=== PATIENT | female | born 1980 | race Caucasian/White ===

== ENCOUNTER 2017-06-11 19:16 | Emergency (ER) | payer OTHER ==
--- NOTE | 2017-06-11 19:39 | EDPHY ---
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 She states that she was riding her horse and was bucked off into the grass. She fell in a sitting position. She has a previous sacral and suprapubic fracture 15 years ago that was treated non operatively. She also has a history of hip dysplasia that was treated 2012 surgically. The she also has a small bruise to her right middle finger at the DIP. She denies other injuries. No head neck or back pain. No bowel or bladder abnormalities. No numbness. No weakness or loss of strength. She is able to ambulate. REVIEW OF SYSTEMS: Constitutional: denies: chills, fever, recent illness, recent injury EENTM: denies: blurred vision, double vision, nose congestion Respiratory: denies: cough, shortness of breath Cardiac: denies: chest pain, irregular heart rate, lightheadedness, palpitations Gastrointestinal/Abdominal: denies: abdominal pain, diarrhea, nausea, vomiting, blood streaked stools Genitourinary: denies: dysuria, frequency, hematuria, pain Musculoskeletal: See HPI Skin: denies: lesions, rash, jaundice, bruising Neurological: denies: headache, numbness, paresthesia, tingling, dizziness, weakness Hematologic/Lymphatic: denies: blood clots, easy bleeding, easy bruising Immunologic/allergic: denies: HIV/AIDS, transplant EXAM: GENERAL: Well-appearing, well-nourished and in no acute distress. HEAD: Atraumatic, normocephalic. EYES: Pupils equal round and reactive to light, extraocular movements intact, sclera anicteric, conjunctiva are normal. ENT: TMs normal, nares patent, oropharynx clear without exudates. Moist mucous membranes. NECK: Normal range of motion, supple without lymphadenopathy or JVD. LUNGS: Breath sounds clear to auscultation bilaterally and equal. No wheezes rales or rhonchi. HEART: Regular rate and rhythm without murmurs, rubs or gallops. ABDOMEN: Soft, nontender, normoactive bowel sounds. No guarding, no rebound. No masses appreciated. BACK: No CVA tenderness, no spinal tenderness, step-offs or deformities EXTREMITIES: Small contusion and swelling to right middle finger DIP. Significant tenderness to coccyx and sacrum. No swelling. No lumbar tenderness. Normal range of motion, no pitting or edema. No clubbing or cyanosis. NEUROLOGICAL: Cranial nerves II through XII grossly intact. Normal speech, normal gait. 5/5 strength, normal movement in all extremities, normal sensation PSYCH: Normal mood, normal affect. SKIN: Warm, dry, normal turgor, no visible rashes or lesions. Source: Patient Exam Limitations: No limitations - Personal History LMP (Females 10-55): 8-14 Days Ago Current Tetanus Diphtheria and Acellular Pertussis (TDAP): Yes - Medical/Surgical History Hx Asthma: No Hx Chronic Respiratory Disease: No Hx Diabetes: No Hx Cardiac Disease: No Hx Renal Disease: No Hx Cirrhosis: No Hx Alcoholism: No Hx HIV/AIDS: No Hx Splenectomy or Spleen Trauma: No Other PMH: pelvic reconstuction, nerve pain to SI, GRAVES DX (RESOLVED) - Family History Significant Family History: No pertinent family hx - Social History Smoking Status: Never smoked Alcohol Use: Sober Drug Use: None Constitutional: Initial Vital Signs Temperature (C) 36.8 C 06/11/17 19:20 Heart Rate 120 H 06/11/17 19:20 Respiratory Rate 18 06/11/17 19:20 Blood Pressure 176/113 H 06/11/17 19:20 O2 Sat (%) 97 06/11/17 19:20 O2 Delivery Mode Room Air Allergies/Adverse Reactions: amoxicillin [Amoxicillin] Allergy (Verified 11/07/13 13:39) Unknown Penicillins Allergy (Verified 11/07/13 13:39) Unknown Home Medications: Medication Instructions Recorded Amitriptyline HCl [Elavil 10 mg 10 mg PO HS 11/06/13 (*)] Norgestimate-Ethinyl Estradiol 1 each PO DAILY 11/06/13 [Ortho Tri-Cyclen 28 Tablet] Herbals/Supplements -Info Only 1 ea PO DAILY 11/07/13 Omeprazole [Prilosec] 40 mg PO DAILY 11/07/13 oxyCODONE IR [Oxycodone Ir (*)] 5 mg PO DAILY PRN 11/07/13 Diazepam [Valium 5 MG (RX)] 5 mg PO TID PRN #20 tab 11/09/13 Methocarbamol [Robaxin 500 mg (*)] 1,000 mg PO QID PRN #50 tab 11/09/13 methylPREDNISolone [Medrol Dose 1 each PO AD #1 ea 11/09/13 Jose Angel] oxyCODONE IR [Oxycodone Ir (*)] 10 mg PO Q3 PRN #50 tab 11/09/13 Medical Decision Making - Diagnostics Imaging: Discussed imaging studies w/ nonfarm animal caretaker Radiologist ED Course/Re-evaluation: 8:30 p.m. We discussed the x-ray results which are reassuring. The patient is happy. We discussed soft questions and donuts as well as ice and rest. She is happy with this plan. She has had hip dysplasia surgery 2011 and has plans to have further modifications this summer. 9:00 p.m. While being discharged the patient asked if she could have pain medication. She takes OxyContin at home and wonders if there is something stronger. We discussed that there is not something stronger but we can give her take-home pack of Percocet if she would like. Differential Diagnosis: Partial list of the Differential diagnosis considered include but were not limited to; fracture, contusion and although unlikely based on the history and physical exam, I also considered head injury, back injury, dislocation. I discussed these differential diagnoses and the plan with the patient as well as the usual and expected course. The patient understands that the diagnosis is provisional and that in medicine we are not always correct and that further workup is often warranted. Usual and customary warnings were given. All of the patient's questions were answered. The patient was instructed to return to the emergency department should the symptoms at all worsen or return, otherwise to followup with the physician as we discussed. - Data Points Medications Given: Discontinued Medications Oxycodone HCl (Oxycodone Ir) 5 mg PO EDNOW ONE Stop: 06/11/17 19:49 Last Admin: 06/11/17 19:49 Dose: 5 mg Oxycodone HCl (Oxycodone Ir) 5 mg PO EDNOW ONE Stop: 06/11/17 19:51 Last Admin: 06/11/17 20:00 Dose: 5 mg Oxycodone/Acetaminophen (Percocet 5/325mg Prepack#4) 1 btl TAKEHOME EDNOW ONE Stop: 06/11/17 21:06 Last Admin: 06/11/17 21:10 Dose: 1 btl Departure - Departure Disposition: Home, Routine, Self-Care Clinical Impression: Coccyx contusion Qualifiers: Encounter type: initial encounter Qualified Code(s): S30.0XXA - Contusion of lower back and pelvis, initial encounter Condition: Fair Instructions: Coccyx Injury (ED) Referrals: Theresa Catalan MD [Primary Care Provider] - As per Instructions
[2017-06-11] MEDS ORDERED: oxyCODONE IR 5 MG TAB ONE (19:48)
[2017-06-11] MEDS ORDERED: oxyCODONE IR 5 MG TAB PO ONE ×2 (19:48→19:50)
[2017-06-11] MEDS ORDERED: OXYCODONE/APAP 5/325MG PREPACK#4 BTL TAKEHOME ONE (21:05)
[2017-06-11 21:25] VITALS: BP 127/98
== END 2017-06-11 21:25 | disposition home or self-care (01) ==
DX: S30.0XXA Contusion of lower back and pelvis, initial encounter (principal); V80.010A Animal-rider injured by fall from or being thrown from horse in noncollision accident, initial encounter; Y99.8 Other external cause status; Y93.52 Activity, horseback riding

== ENCOUNTER 2017-07-13 05:50 | Observation (INO) | payer OTHER ==
--- NOTE | 2017-07-12 15:54 | PDGENHP ---
History and Physical - Chief Complaint Bilateral Hip Pain - History of Present Illness 1. Bilateral~Hip Pain 2. Relative femoral~retro-torsion, acetabular retro-version 3. ~~Bilateral Sacroiliac Joint pain 4. ~~History of bilateral Hip arthroscopy and Bilateral STEFF 2011 HISTORY OF PRESENT ILLNESS: Pedrois a 37 y.o.~~active female~who I have had the pleasure to consult on today. I have enjoyed meeting her. She~lives in [place]. 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 ~She~is single; she~ has no~children. ~Pedroenjoys ride horses, and trail running. Left Hip scope April 2011: Dr. Fran Franklin Left STEFF May 2011: Dr. Garcia Right Hip scope September 2011: Dr. Fran Franklin Right STEFF October 2011: Dr. Radha Mendosa's bilateral~hip pain~started 2009, with some~recalled trauma or injury (pubic ramus?~fracture 2004 after falling off a horse), and with no~previous complaints. Presentation today is of anterior LEFT, posterior SIJ bilateral~hip pain. ~The hip does not~wake her~at night and does not~click and catch on her. Sitting can be uncomfortable~for her. Pedrodoes~report suffering from lower back pain episodes. ~L5-S1 herniated disc (diagnosed 2013). ~Radicular symptoms bilateral down to knees. (started 02/08) Pedrohas~participated in physical therapy and has~tried other conservative measures~including bilateral cortisone hip injections~(no immediate or mcc relief), SI joint injections which gave her 80% relief for 2 weeks, massage , dry needling . She~has not~received sufficient symptomatic improvement. Pedrohas~utilized medication for pain management, including Oxycodone, Meloxicam. Pedrohas used medication since 2011. Pedrounderstands that she~has a hip and pelvis problem which should be researched and wishes to get a better understanding of her~hip status, followed by an establishment of a treatment strategy, hoping she~would be able to get back to her~well being active life. History: Past medical history: ~ Graves Disease Relevant familial history: None which is relevant Past surgical history: No. Surgery Anesthesia 1 Bilateral Hip scopes general 2 Bilateral STEFF General Pedrodenies problematic issues with general anesthesia in the past. I have reviewed, verified and agree with the past medical, surgical, family and social history. Current Medications:~has a current medication list which includes the following prescription(s): amitriptyline, l-norgest/e.estradiol-e.estrad, meloxicam, omeprazole, and oxycodone. ALLERGIES:~is allergic to amoxicillin and penicillins. Objective: Physical Examination: Pedrois 5~feet 7~inches tall and weighs 160~Lbs. Pedrois AAO x3; she~is well-nourished, in NAD. Skin is warm and dry. ~Breathing is non-labored. ~CV with RRR by pulse. Abdomen is soft, NTND. Currently, she~walks with a normal~gait. Trendelenburg sign is negative~and proprioception is reduced, both~sides. She~presents with mild~signs of joint laxity. Beightons Score: 2 Lower spine examination is positive~for sciatic~or femoral nerve irritation with negative~SLR &~femoral stretch tests. Range of motion of the spine is normal~for flexion, extension, and rotations, with no~associated pain. Strength, Sensation and pulses are normal - bilaterally Ankles and knees exams are normal~and no~mal-alignment is evident. She~has no leg length discrepancy. Thigh circumference is symmetric~with no evidence for muscle atrophy~on both~ sides. Hip ROM (degrees): FL ER At 90~hip FL IR At 90~hip FL AB AD EX IR Neutral hip ER Neutral hip R 95 40 0 30 5 5 15 45 L 95 50 0 35 5 5 10 50 Specific hip and pelvis tests: Impingement Test ZHANE Roll Add. Longus R +++ Negative Negative Negative L +++ +++ + Negative Glut. Med ITB Posterior Imp R Negative 5/5 strength Negative 5/5 strength Negative L Negative 5/5 strength Negative 5/5 strength Negative Squeeze test measured normal Bony Symphysis pubis is painful~to touch while concentric activity of the rectus abdominis, does not~produce pain at its insertion. Ilio Psos specific tests are negative for pain during cycling for both hips~no snap. HF is weak with some pain ~both hips. Left anterior~capsule tenderness~ Greater trochanteric burse is pain free~on both hips. Piriformis tests: FAIR is negative, with no~local signs of neuritis related to sciatic nerve. SIJs examination is painful~with normal~ZHANE in relation and local tenderness. Hamstrings tests are negative~functional contraction and negative~tendinopathy both hips. On a daily basis, the following percentages reflect Navya's overall total pain: Deep hip: 20% SIJ: 80% Imaging: Radiology studies which I have personally reviewed, analyzed and measured are below: XR: AP of the hip and pelvis: Performed in a good~technique Coccyx to pubic symphysis distance 1.6~cm. 3~degrees caudal [place] Lines are preserved. Minimal~Pathological signs are seen in the Symphysis Pubis. Minimal~Pathological signs are seen at the Ischial tuberosity. ~ Specific measurements show: NSA~ LCE Sourcil~Angle Sharp's angle Lat. Cam Lat. Pincer C.Over~sign Head~Coverage % ATDmm R N 45 -6 - - + - N N L N 28 8 - - - - N N Pos. wall sign ISS NAD ~~Dysplasia Comments R Negative + 15.2~mm Negative L + + 8.6~mm Negative Sclerosis Sup. Lat. OA Cysts Joint Space-WBZ Joint Space-Medial R Negative Negative Negative 3.1~mm 4.6~mm L Negative Negative Negative 3.7~mm 4.1~mm X Table lateral: Anterior cam lesion is seen~on both hips. Alpha Angle: ~ Right 52~dergrees Left 58~degrees AIIS JOAN seen on 3D/CT Femoral torsion is zero on the right and 3 degrees on the left. Acetabulum is retroverted. Impression and plan: Pedrois a 37 y.o.~active female~suffering from symptomatic Bilateral~hip and SIJ pain due to Bilateral~Hip Pain exacerbated by relative femoral retrotorsion and post STEFF pincer anatomy, causing significant disability to her~ and altering her~sport and life activities. Physical examination, imaging, and her~story correspond with the diagnosis mentioned above. I explained that femoral malrotation is a condition wherein the hip joint has excessive play~and instability due to the orientation of the femur bone or where the femur bone is rotated towards the back of the hip socket resulting in additional impingement pathology. This pathology ranges in severity with treatment options being specific to the nature of the problem. Left untreated, the ante-torsion related instability or the retro-torsion related impingement in the hip joint can cause progressive tearing of the labrum and deterioration of the surface cartilage, ultimately resulting in progressive osteoarthritis of the hip. ~ I explained that femoroacetabular impingement (JOAN - Cam type) arises due to a bony or soft tissue conflict between the femur (ball) and acetabulum (socket) caused by an abnormality in the shape of the femoral head and neck. Over time, repetitive impingement can result in damage to the labrum and adjacent surface cartilage within the socket, ultimately giving rise to progressive osteoarthritis of the hip. ~ I explained that although a labral tear can be a source of pain, it is rarely the root of the problem and typically occurs secondary to an underlying abnormality in the shape and mechanics of the hip joint. ~ I reviewed conservative treatment options for Femoral malrotation and JOAN including activity modification to avoid positions of impingement or instability , physical therapy, non-steroidal anti-inflammatory medications, and various injections (corticosteroid and PRP) aimed at reducing inflammation in the hip joint or/and preventing dynamic instability and impingement. PRP injections may promote healing and reduce symptoms in certain cases but it will not repair chronically damaged tissue. Although these measures may help to buy time~and reduce current level of symptoms, they are not a definitive solution to the problem given the underlying abnormality in the shape of the hip joint. ~ Patients who have failed conservative management and continue to experience symptoms are candidates for definitive surgical treatment, which may consist of hip arthroscopy alone or in combination with more invasive bony realignment procedures of the femur called derotational femoral osteotomy (DFO), where the femur bone is rotated to the normal anatomical range. ~ Hip arthroscopy typically includes treating the labrum with either repair or reconstruction of the torn labrum; as well as addressing the underlying abnormalities by restoring the normal shape to the hip joint. If the cartilage is damaged a Microfracture surgical procedure may also be necessary to help stimulate the growth of fibrocartilage. If a patient requires a labral reconstruction or a microfracture, the initial rehabilitation from the surgery may take longer, but the mcc results are typically favorable. Navya~will review the info presented. In order to obtain more detailed information regarding the alignment, orientation, and shape of the bony hip and pelvis I will order a CT scan to be performed. The results of the CT scan, including femoral torsion and acetabular version measured values and 3D images, will aid me in deciding on the best treatment strategy and surgical pre-planning. Pedrois going to contact us after completing her~imaging studies. Pedrois happy with this plan. I have also supplied her~with handouts, outlining the expected surgical treatment and rehab involved. I wish~Pedroall the best, ~~ ALCON Marie History Information - Allergies/Home Medication List Allergies/Adverse Reactions: amoxicillin [Amoxicillin] Allergy (Verified 11/07/13 13:39) Unknown Penicillins Allergy (Verified 06/23/17 11:10) Unknown Home Medications: Amitriptyline HCl [Elavil 10 mg (*)] 11/06/13 [Last Taken 11/06/13] Norgestimate-Ethinyl Estradiol [Ortho Tri-Cyclen 28 Tablet] 11/06/13 [Last Taken Unknown] Herbals/Supplements -Info Only 11/07/13 [Last Taken Unknown] Omeprazole [Prilosec] 11/07/13 [Last Taken 11/07/13] oxyCODONE IR [Oxycodone Ir (*)] 11/07/13 [Last Taken Unknown] Diazepam [Valium 5 MG (RX)] 06/23/17 [Last Taken Unknown] Methocarbamol [Robaxin 500 mg (*)] 06/23/17 [Last Taken Unknown] oxyCODONE IR [Oxycodone Ir (*)] 06/23/17 [Last Taken Unknown] I have personally reviewed and updated: medical history - Social History Smoking Status: Never smoked Review of Systems Review of Systems: Physical Exam Physical Exam:
[2017-07-13] MEDS ORDERED: LR 1,000 ML IV ONE (06:12)
[2017-07-13] MEDS ORDERED: ACETAMINOPHEN 500 MG TAB PO ONE (06:12)
[2017-07-13] MEDS ORDERED: CLINDAMYCIN 900 MG/DEXTROSE 50 ML IV ONE (06:12)
[2017-07-13] MEDS ORDERED: LIDOCAINE 1% 2 ML INJ ID PRN (06:12)
[2017-07-13] MEDS ORDERED: PREGABALIN 150 MG CAP PO ONE (06:12)
[2017-07-13] MEDS ORDERED: MIDAZOLAM 2 MG/2 ML VIAL IVP ONE (07:02)
--- NOTE | 2017-07-13 07:05 | PDANEPAE ---
ANE History of Present Illness Patient presents for bilateral iliac spine avulsion reduction ANE Past Medical History - Cardiovascular History Hx Hypertension: No Hx Arrhythmias: No Hx Chest Pain: No Hx Coronary Artery / Peripheral Vascular Disease: No Hx CHF / Valvular Disease: No Hx Palpitations: No - Pulmonary History Hx COPD: No Hx Asthma/Reactive Airway Disease: No Hx Recent Upper Respiratory Infection: No Hx Oxygen in Use at Home: No Hx Sleep Apnea: No Sleep Apnea Screening Result - Last Documented: Negative - Neurologic History Hx Cerebrovascular Accident: No Hx Seizures: No Hx Dementia: No - Endocrine History Hx Diabetes: No - Renal History Hx Renal Disorders: No - Liver History Hx Hepatic Disorders: No - Neurological & Psychiatric Hx Hx Neurological and Psychiatric Disorders: No - Cancer History Hx Cancer: No - Congenital Disorder History Hx Congenital Disorders: No - GI History GERD: mild Hx Gastrointestinal Disorders: Yes Gastrointestinal History Comment: reflux, hx ulcers - Other Health History Other Health History: none - Chronic Pain History Chronic Pain: Yes - Surgical History Prior Surgeries: none ANE Review of Systems Review of Systems: - Exercise capacity Exercise capacity: >=4 METS METS (RN): 6 METS ANE Patient History - Allergies Allergies/Adverse Reactions: amoxicillin [Amoxicillin] Allergy (Verified 11/07/13 13:39) Unknown Penicillins Allergy (Verified 06/23/17 11:10) Unknown - Home Medications Home medications: home medication list seen and reviewed Home Medications: Amitriptyline HCl [Elavil 10 mg (*)] 11/06/13 [Last Taken 1 Day Ago ~07/12/17] Norgestimate-Ethinyl Estradiol [Ortho Tri-Cyclen 28 Tablet] 11/06/13 [Last Taken Unknown] Herbals/Supplements -Info Only 11/07/13 [Last Taken Unknown] Omeprazole [Prilosec] 11/07/13 [Last Taken 07/13/17 05:15] oxyCODONE IR [Oxycodone Ir (*)] 11/07/13 [Last Taken 1 Day Ago ~07/12/17] Diazepam [Valium 5 MG (RX)] 06/23/17 [Last Taken Unknown] Methocarbamol [Robaxin 500 mg (*)] 06/23/17 [Last Taken Unknown] oxyCODONE IR [Oxycodone Ir (*)] 06/23/17 [Last Taken Unknown] - NPO status NPO Status: no food or drink >8 hours NPO Since - Liquids (Date): 07/12/17 NPO Since - Liquids (Time): 18:00 NPO Since - Solids (Date): 07/12/17 NPO Since - Solids (Time): 18:00 - Smoking Hx Smoking Status: Never smoked - Family Anes Hx Family Hx Anesthesia Complications: none ANE Labs/Vital Signs - Vital Signs Blood Pressure: 135/89 Heart Rate: 95 Respiratory Rate: 18 O2 Sat (%): 98 Height: 170.18 cm Weight: 72.575 kg ANE Physical Exam - Airway Neck exam: FROM Mallampati Score: Class 2 Mouth exam: small mouth opening - Pulmonary Pulmonary: no respiratory distress - Cardiovascular Cardiovascular: regular rate and rhythym - ASA Status ASA Status: II ANE Anesthesia Plan Anesthesia Plan: general endotracheal anesthesia (rba discussed)
[2017-07-13] MEDS ORDERED: BUPIVACAINE 0.25% 30 ML SDV ONE (07:06)
[2017-07-13] MEDS ORDERED: EPINEPHrine 1 MG/ML INJ ONE (07:06)
[2017-07-13] MEDS ORDERED: PROPOFOL 200 MG/20 ML VIAL ONE (07:08)
[2017-07-13] MEDS ORDERED: PROPOFOL/EMULSION 500 MG/50 ML BOTTLE IV ONE (07:08)
[2017-07-13] MEDS ORDERED: fentaNYL 100 MCG/2 ML INJ ONE ×5 (07:08→12:55)
[2017-07-13] MEDS ORDERED: MIDAZOLAM 2 MG/2 ML VIAL ONE (07:23)
[2017-07-13] MEDS ORDERED: DEXAMETHASONE 4 MG/ML VIAL ONE (07:43)
[2017-07-13] MEDS ORDERED: NEOSTIGMINE METHYLSULFATE 10 MG/10 ML MDV ONE (08:19)
[2017-07-13] MEDS ORDERED: ONDANSETRON 4 MG/2 ML VIAL ONE (08:20)
[2017-07-13] MEDS ORDERED: GLYCOPYRROLATE 0.2 MG/1 ML VIAL ONE ×3 (08:20)
[2017-07-13] MEDS ORDERED: KETOROLAC 30 MG/1 ML SDV ONE (08:20)
[2017-07-13] MEDS ORDERED: METOCLOPRAMIDE 10 MG/2 ML VIAL ONE (08:45)
[2017-07-13] MEDS ORDERED: ROCURONIUM 50 MG/5 ML VIAL ONE (09:02)
[2017-07-13] MEDS ORDERED: HYDROCODONE/APAP 5/325 TAB PO PRN ×2 (11:31→12:34)
[2017-07-13] MEDS ORDERED: ONDANSETRON 4 MG/2 ML VIAL IVP PRN ×3 (11:31→12:34)
[2017-07-13] MEDS ORDERED: LR 500 ML IV PRN ×2 (11:31→12:34)
[2017-07-13] MEDS ORDERED: NALOXONE HCL 0.4 MG/ML INJ IVP PRN ×2 (11:31→12:34)
[2017-07-13] MEDS ORDERED: oxyCODONE IR 5 MG TAB PO PRN ×3 (11:31→12:34)
[2017-07-13] MEDS ORDERED: HYDROmorphONE/DILAUDID 1 MG/ML INJ IVP PRN ×2 (11:51→18:39)
[2017-07-13] MEDS ORDERED: TEMAZEPAM 15 MG CAP PO PRN (11:51)
[2017-07-13] MEDS ORDERED: ONDANSETRON DISINTEGRATING 4 MG TAB PO PRN (11:51)
[2017-07-13] MEDS ORDERED: PROMETHAZINE HCL 25 MG/ML INJ IVP PRN (11:51)
[2017-07-13] MEDS ORDERED: HYDROmorphONE/DILAUDID 2 MG/ML INJ ONE (12:15)
[2017-07-13] MEDS: HYDROmorphONE/DILAUDID 2 MG/ML INJ IVP PRN ×4 (12:16→12:53)
--- NOTE | 2017-07-13 12:26 | POSTANESTH ---
Post Anesthetic Evaluation Cardiovascular Status: Similar to Pre-Op Cond Respiratory Status: Similar to Pre-op Cond. Level of Consciousness/Mental Status: Alert and Oriented Pain Control: Adequate, Prn Tx Ordered Nausea/Vomiting Control: Adequate, Prn Tx Ordered Complications Possibly Related to Anesthesia: None Noted
[2017-07-13] MEDS ORDERED: oxyCODONE IR 5 MG TAB ONE (12:38)
[2017-07-13] MEDS: fentaNYL 100 MCG/2 ML INJ IVP PRN ×3 (12:59→13:34)
[2017-07-13] MEDS: oxyCODONE IR 5 MG TAB PO PRN (18:58)
[2017-07-13] MEDS: ACETAMINOPHEN 325 MG TAB PO PRN (22:51)
[2017-07-13] MEDS: oxyCODONE IR 5 MG TAB PO SCH (22:52)
[2017-07-13] MEDS ORDERED: DIAZEPAM 5 MG TAB PO PRN (23:41)
[2017-07-13] MEDS ORDERED: AMITRIPTYLINE HCL 100 MG TAB PO SCH (23:45)
[2017-07-13] MEDS ORDERED: AMITRIPTYLINE HCL 10 MG TAB PO SCH (23:45)
[2017-07-14] MEDS: oxyCODONE IR 5 MG TAB PO SCH ×4 (02:16→14:08)
[2017-07-14] MEDS: oxyCODONE IR 5 MG TAB PO PRN ×3 (08:55→15:59)
[2017-07-14] MEDS: ACETAMINOPHEN 325 MG TAB PO PRN (10:39)
--- NOTE | 2017-07-14 10:40 | ASMTCMCOM ---
CM Note CM Note Notes: Pt medically stable for d/c, no CM d/c needs identified. Date Signed: 07/14/2017 10:39 AM Electronically Signed By:DEVIKA Rios
[2017-07-14 11:26] VITALS: BP 125/79
[2017-07-14] MEDS ORDERED: AMITRIPTYLINE HCL 10 MG TAB PO SCH (21:00)
--- NOTE | 2017-08-15 19:20 | GDS ---
[f rep st] DISCHARGE SUMMARY Navya underwent a bilateral AIIS reduction and hardware removal and was kept overnight for postope rative pain management. She was well pain managed with oral and IV push medications and she was disc harged the following day in good condition. She will go home with crutches and will be full weightbe aring and follow up with Dr. Torres in 2 weeks time. /[id number]/MODL
== END 2017-07-14 17:34 | disposition home or self-care (01) ==
LOC: FSGY 05:50 → F3N 11:51
PROVIDERS: ADMIT Orthopaedic Surgery Sports Medicine; ATTEND Orthopaedic Surgery Sports Medicine
PROC: 0QB30ZZ Excision of Left Pelvic Bone, Open Approach (ICD-10-PCS; principal; 2017-07-13 07:15)
PROC: 0QB20ZZ Excision of Right Pelvic Bone, Open Approach (ICD-10-PCS; principal; 2017-07-13 07:15)
PROC: 0QP304Z Removal of Internal Fixation Device from Left Pelvic Bone, Open Approach (ICD-10-PCS; principal; 2017-07-13 07:15)
PROC: 0QP204Z Removal of Internal Fixation Device from Right Pelvic Bone, Open Approach (ICD-10-PCS; principal; 2017-07-13 07:15)
PROC: BQ111ZZ Fluoroscopy of Left Hip using Low Osmolar Contrast (ICD-10-PCS; 2017-07-13 07:15)
PROC: BQ101ZZ Fluoroscopy of Right Hip using Low Osmolar Contrast (ICD-10-PCS; 2017-07-13 07:15)
DX: T84.84XA Pain due to internal orthopedic prosthetic devices, implants and grafts, initial encounter (principal); M25.851 Other specified joint disorders, right hip; M25.852 Other specified joint disorders, left hip; M25.551 Pain in right hip; M25.552 Pain in left hip; M53.3 Sacrococcygeal disorders, not elsewhere classified; E05.00 Thyrotoxicosis with diffuse goiter without thyrotoxic crisis or storm; Y79.2 Prosthetic and other implants, materials and accessory orthopedic devices associated with adverse incidents; Z88.0 Allergy status to penicillin
CPT/HCPCS: 20680; 27071; 76001; G0378; C1713; J0171; J1100; J1170; J1885; J2250; J2405; J2704; J2765; J3010

== ENCOUNTER → 2017-07-21 | Outpatient (CLI) | payer OTHER | LOC: FIMAGING 13:42 | PROVIDERS: ATTEND Orthopaedic Surgery Sports Medicine | DX: Q65.89 Other specified congenital deformities of hip (principal); M25.451 Effusion, right hip; M65.9 Synovitis and tenosynovitis, unspecified; M76.899 Other specified enthesopathies of unspecified lower limb, excluding foot; M24.152 Other articular cartilage disorders, left hip; M25.551 Pain in right hip; M25.552 Pain in left hip; Z98.890 Other specified postprocedural states ==

== ENCOUNTER 2017-08-14 09:36 | Observation (INO) | payer OTHER ==
--- NOTE | 2017-08-13 23:04 | PDGENHP ---
History and Physical - Chief Complaint Right Hip Pain - History of Present Illness 1. Bilateral~Hip Pain 2. Relative femoral~retro-torsion, acetabular retro-version 3. ~~Bilateral Sacroiliac Joint pain 4. ~~History of bilateral Hip arthroscopy and Bilateral STEFF 2011 HISTORY OF PRESENT ILLNESS: Pedrois a 37 y.o.~~active female~who I have had the pleasure to consult on today. I have enjoyed meeting her. She~lives in [place]. 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 ~She~is single; she~ has no~children. ~Pedroenjoys ride horses, and trail running. Left Hip scope April 2011: Dr. Fran Franklin Left STEFF May 2011: Dr. Garcia Right Hip scope September 2011: Dr. Fran Franklin Right STEFF October 2011: Dr. Radha Mendosa's bilateral~hip pain~started 2009, with some~recalled trauma or injury (pubic ramus?~fracture 2004 after falling off a horse), and with no~previous complaints. Presentation today is of anterior LEFT, posterior SIJ bilateral~hip pain. ~The hip does not~wake her~at night and does not~click and catch on her. Sitting can be uncomfortable~for her. Pedrodoes~report suffering from lower back pain episodes. ~L5-S1 herniated disc (diagnosed 2013). ~Radicular symptoms bilateral down to knees. (started 02/08) Pedrohas~participated in physical therapy and has~tried other conservative measures~including bilateral cortisone hip injections~(no immediate or prison relief), SI joint injections which gave her 80% relief for 2 weeks, massage , dry needling . She~has not~received sufficient symptomatic improvement. Pedrohas~utilized medication for pain management, including Oxycodone, Meloxicam. Pedrohas used medication since 2011. Pedrounderstands that she~has a hip and pelvis problem which should be researched and wishes to get a better understanding of her~hip status, followed by an establishment of a treatment strategy, hoping she~would be able to get back to her~well being active life. History: Past medical history: ~ Graves Disease Relevant familial history: None which is relevant Past surgical history: No. Surgery Anesthesia 1 Bilateral Hip scopes general 2 Bilateral STEFF General Pedrodenies problematic issues with general anesthesia in the past. I have reviewed, verified and agree with the past medical, surgical, family and social history. Current Medications:~has a current medication list which includes the following prescription(s): amitriptyline, l-norgest/e.estradiol-e.estrad, meloxicam, omeprazole, and oxycodone. ALLERGIES:~is allergic to amoxicillin and penicillins. Objective: Physical Examination: Pedrois 5~feet 7~inches tall and weighs 160~Lbs. Pedrois AAO x3; she~is well-nourished, in NAD. Skin is warm and dry. ~Breathing is non-labored. ~CV with RRR by pulse. Abdomen is soft, NTND. Currently, she~walks with a normal~gait. Trendelenburg sign is negative~and proprioception is reduced, both~sides. She~presents with mild~signs of joint laxity. Beightons Score: 2 Lower spine examination is positive~for sciatic~or femoral nerve irritation with negative~SLR &~femoral stretch tests. Range of motion of the spine is normal~for flexion, extension, and rotations, with no~associated pain. Strength, Sensation and pulses are normal - bilaterally Ankles and knees exams are normal~and no~mal-alignment is evident. She~has no leg length discrepancy. Thigh circumference is symmetric~with no evidence for muscle atrophy~on both~ sides. Hip ROM (degrees): FL ER At 90~hip FL IR At 90~hip FL AB AD EX IR Neutral hip ER Neutral hip R 95 40 0 30 5 5 15 45 L 95 50 0 35 5 5 10 50 Specific hip and pelvis tests: Impingement Test ZHANE Roll Add. Longus R +++ Negative Negative Negative L +++ +++ + Negative Glut. Med ITB Posterior Imp R Negative 5/5 strength Negative 5/5 strength Negative L Negative 5/5 strength Negative 5/5 strength Negative Squeeze test measured normal Bony Symphysis pubis is painful~to touch while concentric activity of the rectus abdominis, does not~produce pain at its insertion. Ilio Psos specific tests are negative for pain during cycling for both hips~no snap. HF is weak with some pain ~both hips. Left anterior~capsule tenderness~ Greater trochanteric burse is pain free~on both hips. Piriformis tests: FAIR is negative, with no~local signs of neuritis related to sciatic nerve. SIJs examination is painful~with normal~ZHANE in relation and local tenderness. Hamstrings tests are negative~functional contraction and negative~tendinopathy both hips. On a daily basis, the following percentages reflect Navya's overall total pain: Deep hip: 20% SIJ: 80% Imaging: Radiology studies which I have personally reviewed, analyzed and measured are below: XR: AP of the hip and pelvis: Performed in a good~technique Coccyx to pubic symphysis distance 1.6~cm. 3~degrees caudal [place] Lines are preserved. Minimal~Pathological signs are seen in the Symphysis Pubis. Minimal~Pathological signs are seen at the Ischial tuberosity. ~ Specific measurements show: NSA~ LCE Sourcil~Angle Sharp's angle Lat. Cam Lat. Pincer C.Over~sign Head~Coverage % ATDmm R N 45 -6 - - + - N N L N 28 8 - - - - N N Pos. wall sign ISS NAD ~~Dysplasia Comments R Negative + 15.2~mm Negative L + + 8.6~mm Negative Sclerosis Sup. Lat. OA Cysts Joint Space-WBZ Joint Space-Medial R Negative Negative Negative 3.1~mm 4.6~mm L Negative Negative Negative 3.7~mm 4.1~mm X Table lateral: Anterior cam lesion is seen~on both hips. Alpha Angle: ~ Right 52~dergrees Left 58~degrees AIIS JOAN seen on 3D/CT Femoral torsion is zero on the right and 3 degrees on the left. Acetabulum is retroverted. Impression and plan: Pedrois a 37 y.o.~active female~suffering from symptomatic Bilateral~hip and SIJ pain due to Bilateral~Hip Pain exacerbated by relative femoral retrotorsion and post STEFF pincer anatomy, causing significant disability to her~ and altering her~sport and life activities. Physical examination, imaging, and her~story correspond with the diagnosis mentioned above. I explained that femoral malrotation is a condition wherein the hip joint has excessive play~and instability due to the orientation of the femur bone or where the femur bone is rotated towards the back of the hip socket resulting in additional impingement pathology. This pathology ranges in severity with treatment options being specific to the nature of the problem. Left untreated, the ante-torsion related instability or the retro-torsion related impingement in the hip joint can cause progressive tearing of the labrum and deterioration of the surface cartilage, ultimately resulting in progressive osteoarthritis of the hip. ~ I explained that femoroacetabular impingement (JOAN - Cam type) arises due to a bony or soft tissue conflict between the femur (ball) and acetabulum (socket) caused by an abnormality in the shape of the femoral head and neck. Over time, repetitive impingement can result in damage to the labrum and adjacent surface cartilage within the socket, ultimately giving rise to progressive osteoarthritis of the hip. ~ I explained that although a labral tear can be a source of pain, it is rarely the root of the problem and typically occurs secondary to an underlying abnormality in the shape and mechanics of the hip joint. ~ I reviewed conservative treatment options for Femoral malrotation and JOAN including activity modification to avoid positions of impingement or instability , physical therapy, non-steroidal anti-inflammatory medications, and various injections (corticosteroid and PRP) aimed at reducing inflammation in the hip joint or/and preventing dynamic instability and impingement. PRP injections may promote healing and reduce symptoms in certain cases but it will not repair chronically damaged tissue. Although these measures may help to buy time~and reduce current level of symptoms, they are not a definitive solution to the problem given the underlying abnormality in the shape of the hip joint. ~ Patients who have failed conservative management and continue to experience symptoms are candidates for definitive surgical treatment, which may consist of hip arthroscopy alone or in combination with more invasive bony realignment procedures of the femur called derotational femoral osteotomy (DFO), where the femur bone is rotated to the normal anatomical range. ~ Hip arthroscopy typically includes treating the labrum with either repair or reconstruction of the torn labrum; as well as addressing the underlying abnormalities by restoring the normal shape to the hip joint. If the cartilage is damaged a Microfracture surgical procedure may also be necessary to help stimulate the growth of fibrocartilage. If a patient requires a labral reconstruction or a microfracture, the initial rehabilitation from the surgery may take longer, but the terminal supervisor results are typically favorable. Navya~will review the info presented. In order to obtain more detailed information regarding the alignment, orientation, and shape of the bony hip and pelvis I will order a CT scan to be performed. The results of the CT scan, including femoral torsion and acetabular version measured values and 3D images, will aid me in deciding on the best treatment strategy and surgical pre-planning. Pedrois going to contact us after completing her~imaging studies. Pedrois happy with this plan. I have also supplied her~with handouts, outlining the expected surgical treatment and rehab involved. I wish~Pedroall the best, ~~ ALCON Marie History Information - Allergies/Home Medication List Allergies/Adverse Reactions: amoxicillin [Amoxicillin] Allergy (Verified 07/28/17 10:41) Unknown Penicillins Allergy (Verified 07/28/17 10:41) Unknown Home Medications: Herbals/Supplements -Info Only 1 each PO DAILY 11/07/13 [Last Taken Unknown] Omeprazole [Prilosec] 40 mg PO DAILY 11/07/13 [Last Taken 07/12/17] oxyCODONE IR [Oxycodone Ir (*)] 10 mg PO TID PRN 11/07/13 [Last Taken 07/12/17] Acetaminophen [Tylenol ES 500 mg (*)] 500 mg PO TID PRN 07/14/17 [Last Taken Unknown] Amitriptyline HCl [Elavil 10 mg (*)] 20 mg PO HS 07/14/17 [Last Taken Unknown] Amitriptyline HCl [Elavil 50 mg (*)] 100 mg PO HS 07/14/17 [Last Taken 07/12/17] Ranitidine HCl [Zantac 75] 75 mg PO BID 07/14/17 [Last Taken 07/12/17] I have personally reviewed and updated: medical history - Social History Smoking Status: Never smoked Review of Systems Review of Systems: Physical Exam Physical Exam:
[2017-08-14] MEDS ORDERED: PREGABALIN 150 MG CAP PO ONE (09:57)
[2017-08-14] MEDS ORDERED: CLINDAMYCIN 900 MG/DEXTROSE 50 ML IV ONE (09:57)
[2017-08-14] MEDS ORDERED: ACETAMINOPHEN 500 MG TAB PO ONE (09:57)
[2017-08-14] MEDS ORDERED: BUPIVACAINE 0.25% 30 ML SDV ONE (10:06)
[2017-08-14] MEDS ORDERED: EPINEPHrine 1 MG/ML INJ ONE (10:07)
[2017-08-14] MEDS ORDERED: EPINEPHrine 30 MG/30 ML MDV (0.1 MG/0.1 ML) ONE (10:07)
--- NOTE | 2017-08-14 10:52 | PDANEPAE ---
ANE History of Present Illness right hip pain ANE Past Medical History - Cardiovascular History Hx Hypertension: No Hx Arrhythmias: No Hx Chest Pain: No Hx Coronary Artery / Peripheral Vascular Disease: No Hx CHF / Valvular Disease: No Hx Palpitations: No - Pulmonary History Hx COPD: No Hx Asthma/Reactive Airway Disease: No Hx Recent Upper Respiratory Infection: No Hx Oxygen in Use at Home: No Hx Sleep Apnea: No Sleep Apnea Screening Result - Last Documented: Negative - Neurologic History Hx Cerebrovascular Accident: No Hx Seizures: No Hx Dementia: No - Endocrine History Hx Diabetes: No Endocrine History Comment: GRAVES DISEASE-IN REMISSION. - Renal History Hx Renal Disorders: No - Liver History Hx Hepatic Disorders: No - Neurological & Psychiatric Hx Hx Neurological and Psychiatric Disorders: No Neurological / Psychiatric History Comment: BULGING DISC-LUMBAR - Cancer History Hx Cancer: No - Congenital Disorder History Hx Congenital Disorders: No - GI History Hx Gastrointestinal Disorders: Yes Gastrointestinal History Comment: reflux, hx ulcers - Other Health History Other Health History: none - Chronic Pain History Chronic Pain: Yes - Surgical History Prior Surgeries: none ANE Review of Systems Review of systems is: negative Review of Systems: - Exercise capacity Exercise capacity: >=4 METS METS (RN): 4 METS ANE Patient History - Allergies Allergies/Adverse Reactions: amoxicillin [Amoxicillin] Allergy (Verified 07/28/17 10:41) Unknown Penicillins Allergy (Verified 07/28/17 10:41) Unknown - Home Medications Home Medications: Herbals/Supplements -Info Only 1 each PO DAILY 11/07/13 [Last Taken 08/13/17] Omeprazole [Prilosec] 40 mg PO DAILY 11/07/13 [Last Taken 08/14/17 08:45] oxyCODONE IR [Oxycodone Ir (*)] 10 mg PO TID PRN 11/07/13 [Last Taken 08/14/17 08:45] Acetaminophen [Tylenol ES 500 mg (*)] 500 mg PO TID PRN 07/14/17 [Last Taken 08:45] Amitriptyline HCl [Elavil 10 mg (*)] 20 mg PO HS 07/14/17 [Last Taken 08/13/17] Amitriptyline HCl [Elavil 50 mg (*)] 100 mg PO HS 07/14/17 [Last Taken 08/13/17] Ranitidine HCl [Zantac 75] 75 mg PO BID 07/14/17 [Last Taken 08/14/17 08:45] - NPO status NPO Status: no food or drink >8 hours NPO Since - Liquids (Date): 08/14/17 NPO Since - Liquids (Time): 08:45 NPO Since - Solids (Date): 08/13/17 NPO Since - Solids (Time): 20:30 - Anes Hx Anes Hx: no prior problems - Smoking Hx Smoking Status: Never smoked - Alcohol Use Alcohol Use: Rarely - Family Anes Hx Family Anes Hx: none Family Hx Anesthesia Complications: none ANE Labs/Vital Signs - Vital Signs Blood Pressure: 141/91 Heart Rate: 85 Respiratory Rate: 16 O2 Sat (%): 95 Height: 170.18 cm Weight: 72.575 kg ANE Physical Exam - Airway Neck exam: FROM Mallampati Score: Class 2 - Pulmonary Pulmonary: no respiratory distress - Cardiovascular Cardiovascular: regular rate and rhythym - ASA Status ASA Status: II ANE Anesthesia Plan Anesthesia Plan: general endotracheal anesthesia
[2017-08-14] MEDS ORDERED: MIDAZOLAM 2 MG/2 ML VIAL IVP ONE (10:55)
[2017-08-14] MEDS ORDERED: LR 1,000 ML IV ONE (11:00)
[2017-08-14] MEDS ORDERED: fentaNYL 100 MCG/2 ML INJ ONE ×7 (12:06→17:20)
[2017-08-14] MEDS ORDERED: PROPOFOL 200 MG/20 ML VIAL ONE (12:06)
[2017-08-14] MEDS ORDERED: ROCURONIUM 100 MG/10 ML VIAL ONE (12:06)
[2017-08-14] MEDS ORDERED: ROCURONIUM 50 MG/5 ML VIAL ONE (13:08)
[2017-08-14] MEDS ORDERED: LABETALOL HCL 5 MG/ML 20 ML MDV ONE (14:16)
[2017-08-14] MEDS ORDERED: SUGAMMADEX SODIUM 200 MG/2 ML VIAL IVP ONE (16:18)
[2017-08-14] MEDS ORDERED: DEXAMETHASONE 4 MG/ML VIAL ONE ×2 (16:18)
[2017-08-14] MEDS ORDERED: ONDANSETRON 4 MG/2 ML VIAL ONE (16:19)
[2017-08-14] MEDS ORDERED: KETOROLAC 30 MG/1 ML SDV ONE (16:19)
[2017-08-14] MEDS: fentaNYL 100 MCG/2 ML INJ IVP PRN ×5 (16:48→18:14)
[2017-08-14] MEDS ORDERED: HYDROmorphONE/DILAUDID 1 MG/ML INJ ONE ×2 (16:53→17:20)
[2017-08-14] MEDS ORDERED: PROMETHAZINE HCL 25 MG/ML INJ IVP PRN (16:55)
[2017-08-14] MEDS ORDERED: NALOXONE HCL 0.4 MG/ML INJ IVP PRN (16:55)
[2017-08-14] MEDS ORDERED: ACETAMINOPHEN 500 MG TAB PO PRN (16:55)
[2017-08-14] MEDS: HYDROmorphONE/DILAUDID 1 MG/ML INJ IVP PRN ×6 (16:55→21:13)
[2017-08-14] MEDS ORDERED: oxyCODONE IR 5 MG TAB PO PRN ×2 (16:55→16:56)
[2017-08-14] MEDS ORDERED: ALBUTEROL 3 ML DEYVIAL IH PRN (16:55)
[2017-08-14] MEDS ORDERED: MEPERIDINE 25 MG/0.5 ML AMP IVP PRN (16:55)
[2017-08-14] MEDS ORDERED: HYDROCODONE/APAP 5/325 TAB PO PRN (16:55)
[2017-08-14] MEDS ORDERED: ONDANSETRON 4 MG/2 ML VIAL IVP PRN (16:55)
[2017-08-14] MEDS ORDERED: ONDANSETRON DISINTEGRATING 4 MG TAB PO PRN (16:56)
[2017-08-14] MEDS ORDERED: KETOROLAC 15 MG/1 ML SDV IVP ONE (16:56)
--- NOTE | 2017-08-14 16:57 | POSTANESTH ---
Post Anesthetic Evaluation Cardiovascular Status: Normal, Stable Respiratory Status: Normal, Stable Level of Consciousness/Mental Status: Can Participate in Eval Pain Control: Inadeq, Add Tx Required Nausea/Vomiting Control: Adequate, Prn Tx Ordered Complications Possibly Related to Anesthesia: None Noted (tx'ing pain with IV analgesia)
[2017-08-14] MEDS ORDERED: DIAZEPAM 5 MG/ML 1 ML SYR ONE ×2 (17:00→17:21)
[2017-08-14] MEDS ORDERED: ACETAMINOPHEN 500 MG TAB ONE ×2 (17:00→17:07)
[2017-08-14] MEDS: DIAZEPAM 5 MG/ML 1 ML SYR IVP PRN ×2 (17:02→17:07)
--- NOTE | 2017-08-14 19:02 | SUROPNOTE ---
[place] Operative Report - Surgery OPERATION NOTE~on Navya Potts Surgery was performed at: [facility] Date of Surgery: 08/14/2017 Diagnosis: 1. Right~Femoroacetabular impingement (JOAN) Pincer type, Mixed type, with~ resultant labral tear, Cartilage damage 2. Right~Early Osteoarthritis Operation:~Right ~REVISION~Arthroscopic Acetabular rim resection (pincer), Labral reconstruction, soft tissue CAM resection, Synovectomy, Capsular repair Indication: Failure to obtain satisfactory results with long standing conservative measures. Surgeon: ~~~~~~~~~~Carlton Torres MD ~ Switchboard Operator:~~~~~~~~~~~~~Vladislav Damon MD (no qualified resident was able to assist with this case) Anaesthetic:~~~~~General Findings~ Right~Hip: Labrum: absent 10-1 oclock, torn/fryad and scasrred up to capsule 1-2 oclock Acetabulum: Cartilage damage grade 1~extending circumferentially Fovea: Partial tear of LT mostly missing Femoral Head: cartilage damage grade: 1 Synovium: severe~synovitis Peripheral Compartment: Anterolateral soft tissue CAM between 12~O'clock superiorly and 4~O'clock anteriorly Procedure: Supine on operating table. General anaesthetic. Antibiotics given. Standard traction set up, without perineal post. A spinal needle was guided to the femoral head neck junction and traction gradually applied with the joint vented. Local anesthetic infiltrated into the skin around the portals. Once 16mm of distraction was achieved the hip needle was then passed into the joint staying as close to the femoral head as possible. A Nytenol wire was passed through the hip needle ensuring that it passed all the way to the fovea to confirm central placement of the needle. Skin was incised and then the portals sequentially dilated to 7 mm. Switching stick inserted and 30 scope passed over the top. Under dry scope conditions the anterior portal was created by passing the hip needle into the joint under direct vision. Again this was dilated up to 7 mm and the slotted canule was inserted. The saline was then turned on and the joint irrigated. The joint was carefully inspected and photographed with findings as above. The arthroscope was switched to the 70 scope to complete the inspection. A longitudinal intra portal capsulotomy was then performed using ely shoshone blade and the 50 Arthrocare wand to connect the two portals. Central Compartment Intervention: Synovectomy was performed. With the assistance of the wand the acatabular rim was then exposed between 10~ and 3~Oclock and 4-7~mm of "pincer" bone was removed using a motorized carlin. The labrum was then reconstructed with TFL allograft~with 6~peek anchors, achieving good anatomical rim fixation. There anterior labrum, 1-4 was from the capsule and had sufficient tissue for repair. There was complete lack of labrum 10-1. All previous stitched were retrieved. LT was treated with RF wand to shrink and stabilize reactive tissue.~ Peripheral Compartment Intervention: A box-shaped capsulotomy was made with the assistance of SpeedStitch traction suture. This allowed traction on the capsule and a good view of the femoral neck with smaller capsulotomy. The articular margin where sphericity was lost was marked with the Arthrocare wand under X-ray control. Soft tissue lateral to this was removed with the the wand . Portals were switched to deal with the superior headneck junction. Care was taken not to stray posterior and laterally in view of the location of the retinacular vessels. The cam lesion was addressed from 12~to 4~O'clock. A dynamic impingement test was undertaken and vision with 90 of flexion and 5 of internal rotation to confirm that there was no bony or soft tissue impingement or deformation of the labrum. ~Good clearance was obtained with good labral seal. The joint was thoroughly irrigated of any loose debris and the anterior capsule was repaired with 2~No.1 vicryl stitches, closing 60% of the capsulotomy. The skin was then closed with Nylon. Padded dressing was applied. After surgery, Navya~moved both lower limbs and had no NV compromise. Specimen - none Bleeding - 15ml Complication - none Evaluation under Anesthesia: Pre: IR 90 ER 90 ABD Flexion Right -2 45 30 95 Left 0 50 35 95 Post op instructions: 1. Full~weight bearing crutches for 6~weeks 2. Pain killers as prescribed 3. Follow up visit with me, as scheduled, where a rehab protocol would be discussed 4. Avoid hip external rotation for 4 weeks 5. ~~25 days of NSAIDS need to be taken in order to prevent the possible formation of HO ~ Kind regards, ~~ Dr. Carlton Torres
[2017-08-14] MEDS: oxyCODONE IR 15 MG TAB PO SCH (21:12)
[2017-08-14] MEDS: oxyCODONE IR 5 MG TAB PO PRN (23:40)
[2017-08-15] MEDS: oxyCODONE IR 15 MG TAB PO SCH ×6 (02:58→23:19)
[2017-08-15] MEDS: oxyCODONE IR 5 MG TAB PO PRN ×4 (10:44→22:16)
[2017-08-15] MEDS: NAPROXEN SODIUM 220 MG TAB PO SCH ×2 (14:06→22:05)
[2017-08-15] MEDS: DIAZEPAM 5 MG TAB PO PRN ×2 (14:06→20:14)
[2017-08-15] MEDS: ACETAMINOPHEN 500 MG TAB PO SCH ×2 (16:49→22:06)
--- NOTE | 2017-08-15 18:08 | ASMTCMCOM ---
CM Note CM Note Notes: Reviewed chart. Pt admitted for bilateral hip pain. Pt is s/p a right acetabular resection/revision. History includes bilateral hip arthroplasty and bilateral STEFF in 2012. Pt in single and lives alone. 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 Discharge needs remain unclear. PT recommends home with outpt therapy. No OT evals. CM will continue to follow for any potential needs. Current Discharge Plan: Likely home independent with outpt therapy Date Signed: 08/15/2017 06:08 PM Electronically Signed By:Gabriella Monroe RN
[2017-08-15] MEDS: HYDROmorphONE/DILAUDID 1 MG/ML INJ IVP PRN (20:08)
[2017-08-15] MEDS ORDERED: ACETAMINOPHEN 500 MG TAB PO SCH (22:00)
[2017-08-16] MEDS: oxyCODONE IR 15 MG TAB PO SCH ×3 (02:01→09:28)
[2017-08-16] MEDS: DIAZEPAM 5 MG TAB PO PRN ×2 (02:03→09:29)
[2017-08-16] MEDS: ACETAMINOPHEN 500 MG TAB PO SCH (06:01)
[2017-08-16] MEDS: NAPROXEN SODIUM 220 MG TAB PO SCH ×2 (06:02→11:11)
[2017-08-16 08:36] VITALS: BP 130/66
[2017-08-16] MEDS: oxyCODONE IR 5 MG TAB PO PRN (11:32)
--- NOTE | 2017-08-16 12:26 | ASMTLACE ---
LAURYN Length of stay for Answers: 2 days current admission Acuity / Level of Answers: No Care: Did the patient have an inpatient admission? Comorbidities - select Answers: Other Notes: Bilat hip all that apply arthroplasty, bilat hip STEFF # of Emergency department Answers: 1-2 visits in the last 6 months Score: 4 Date Signed: 08/16/2017 12:25 PM Electronically Signed By:Gabriella Monroe RN
--- NOTE | 2017-08-16 12:30 | ASDISCHSUM ---
Discharge Information Plan Status:Home with No Needs Medically Cleared to Leave:08/16/2017 Discharge Date:08/16/2017 12:11 PM CM D/C Disposition:Home, Routine, Self-Care ADT D/C Disposition:Home, Routine, Self-Care Projected Discharge Date:08/16/2017 12:11 PM Transportation at D/C:Friend Discharge Delay Reason: Follow-Up Date:08/16/2017 12:11 PM Discharge Slot:1 - 8:01 am - 12:00 noon Final Diagnosis:s/p bilateral acetabular resection/revision Placement Information Patient Contact Information Contact Name:RADHACHELLYSUZANNAMISACELINA Relationship:Mother Address:[address] City:[place] Alternate Phone: [facility]/Zip Code:[place] [address] Email: Financial Information Financial Class:Bjond [facility] Primary Plan Number:[id number] Secondary Plan Desc: Secondary Plan Number: Assessment Information LACE LACE Length of stay for Answers: 2 days current admission Acuity / Level of Answers: No Care: Did the patient have an inpatient admission? Comorbidities - select Answers: Other Notes: Bilat hip all that apply arthroplasty, bilat hip STEFF # of Emergency department Answers: 1-2 visits in the last 6 months Score: 4 Date Signed: 08/16/2017 12:25 PM Electronically Signed By:Gabriella Monroe RN [facility] Progress Note CM Note CM Note Notes: Reviewed chart. Pt admitted for bilateral hip pain. Pt is s/p a right acetabular resection/revision. History includes bilateral hip arthroplasty and bilateral STEFF in 2012. Pt in single and lives alone. 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 Discharge needs remain unclear. PT recommends home with outpt therapy. No OT evals. CM will continue to follow for any potential needs. Current Discharge Plan: Likely home independent with outpt therapy Date Signed: 08/15/2017 06:08 PM Electronically Signed By:Gabriella Monroe RN Case Management Discharge Plan Note Case Management Discharge Discharge Order Complete? Answers: Yes Patient to Obtain Answers: Independently Medications Transportation Arranged Answers: Family/Friends Transport will Pick (Date 08/16/2017 12:00 AM & Time) EMTALA Complete Answers: No Notes: N/A Case Management Transport Answers: No Notes: N/A Form Complete Faxed Final Orders Answers: No Notes: N/A Agency/Facility Transfer Answers: No Notes: N/A Report Printed & Faxed to Receiving Agency Family Notified Answers: Yes Notes: Friend at bedside Discharge Comments Notes: Reviewed chart, spoke with DENAE Stovall. Pt to discharge home independently with friend support and no identified needs. Met with pt briefly. Pt to follow up as directed; outpt therapy recommended. No IM signed, not applicable. CM available for any further issues or concerns. Discharge Plan: Home independent with friend support and outpt therapy Date Signed: 08/16/2017 12:29 PM Electronically Signed By:Gabriella Monroe RN Intervention Information
== END 2017-08-16 12:11 | disposition home or self-care (01) ==
LOC: FSGY 09:36 → F3N 16:56
PROVIDERS: ADMIT Orthopaedic Surgery Sports Medicine; ATTEND Orthopaedic Surgery Sports Medicine
PROC: 0SQ94ZZ Repair Right Hip Joint, Percutaneous Endoscopic Approach (ICD-10-PCS; principal; 2017-08-14 11:30)
PROC: BQ101ZZ Fluoroscopy of Right Hip using Low Osmolar Contrast (ICD-10-PCS; principal; 2017-08-14 11:30)
PROC: 0SB94ZZ Excision of Right Hip Joint, Percutaneous Endoscopic Approach (ICD-10-PCS; principal; 2017-08-14 11:30)
PROC: 0QB63ZZ Excision of Right Upper Femur, Percutaneous Approach (ICD-10-PCS; principal; 2017-08-14 11:30)
DX: G89.18 Other acute postprocedural pain (principal); M25.859 Other specified joint disorders, unspecified hip; M16.11 Unilateral primary osteoarthritis, right hip; M65.88 Other synovitis and tenosynovitis, other site; E05.00 Thyrotoxicosis with diffuse goiter without thyrotoxic crisis or storm; Z88.0 Allergy status to penicillin
CPT/HCPCS: 29914; 29916; 76001; 97110; 97161; G0378; C1713; C1762; J0171; J1100; J1170; J1885; J2250; J2405; J2704; J3010; J3360

== ENCOUNTER 2018-03-08 20:29 | Emergency (ER) | payer OTHER ==
--- NOTE | 2018-03-08 21:03 | EDPHY ---
H & P Time Seen by Provider: 03/08/18 20:56 HPI/ROS: Chief complaint. Abdominal pain HPI. Patient 37-year-old female presents with burning on urination that started this morning. She then developed left mid abdominal pain which she describes as sharp and pressure. Nausea without vomiting or diarrhea. No fever. No chest pain, shortness of breath or cough. ROS 10 systems were reviewed and negative with the exception of the elements mentioned in the history of present illness Past Medical/Surgical History: Past medical history is significant for IUD, pelvic reconstruction, Graves disease, nerve pain Social History: , nonsmoker, no alcohol Smoking Status: Never smoked Physical Exam: General Appearance: Alert well-developed female mild distress vital signs are stable Eyes: Pupils equal and round no pallor or injection. ENT, Mouth: Mucous membranes are moist. Respiratory: There are no retractions, lungs are clear to auscultation. Cardiovascular: Regular rate and rhythm. Gastrointestinal: Abdomen is soft with left mid abdominal pain. No flank tenderness. No masses. Normal bowel sounds Neurological: Awake and alert, sensory and motor exams grossly normal. Skin: Warm and dry, no rashes. Musculoskeletal: Neck is supple nontender. Extremities symmetrical, full range of motion. Psychiatric: Patient is oriented X 3, there is no agitation. Constitutional: Initial Vital Signs Temperature (C) 36.8 C 03/08/18 20:32 Heart Rate 78 03/08/18 20:32 Respiratory Rate 17 03/08/18 20:32 Blood Pressure 172/118 H 03/08/18 20:32 O2 Sat (%) 95 03/08/18 20:32 O2 Delivery Mode Room Air Allergies/Adverse Reactions: amoxicillin [Amoxicillin] Allergy (Verified 03/08/18 20:31) Rash Penicillins Allergy (Verified 03/08/18 20:31) Rash Home Medications: Medication Instructions Recorded Herbals/Supplements -Info Only 1 each PO DAILY 11/07/13 Omeprazole [Prilosec] 40 mg PO DAILY 11/07/13 Acetaminophen [Tylenol ES 500 mg 500 mg PO TID 07/14/17 (*)] Diazepam [Valium 5 MG (*)] 2.5 - 5 mg PO Q6HRS PRN tab 07/14/17 Ranitidine HCl [Zantac 75] 75 mg PO BID 07/14/17 Sennosides [Senokot] 1 - 2 each PO DAILY 08/14/17 l-Norgest/E.estradiol-E.estrad 1 each PO HS 08/14/17 [Daysee 0.15-0.03-0.01 mg Tab] Amitriptyline HCl [Elavil 10 mg 20 mg PO HS 09/18/17 (*)] Amitriptyline HCl [Elavil 50 mg 100 mg PO HS 10/05/17 (*)] Naproxen 500 mg PO BID 10/05/17 Ondansetron Odt [Zofran Odt 4 mg 4 mg PO Q4 PRN 10/05/17 (*)] Sennosides [Senokot] 4 - 5 each PO HS 10/05/17 oxyCODONE HCL/ACETAMINOPHEN 1 each PO Q4-6PRN PRN 10/05/17 [Percocet 10-325 mg Tablet] oxyCODONE IR [Oxycodone Ir (*)] 5 mg PO TID 10/05/17 Sulfamethox/Tmp 800/160 mg 1 tab PO BID #14 tab 03/08/18 [Bactrim Ds] Medical Decision Making - Diagnostics Imaging Results: Imaging Impressions Abdomen CT 03/08/18 21:18 Impression: 1. Possible lower left breast mass. Recommend physical examination and diagnostic mammography. 2. Findings consistent with the patient having just passed a tiny ureteral stone into the urinary bladder. Results discussed with Dr. Jere Castellano at 10:06 PM. General information for patients regarding this examination can be found at [email or web address]. If you have questions or comments about this report, please contact me at (hospital) or [phone] (cell). Procedures: IV normal saline. Morphine for pain ED Course/Re-evaluation: On re-evaluation at 10:20 p.m. Patient is stable. She is now pain-free. Patient and I discussed imaging study results including likely passage of kidney stone and incidental finding of left breast mass. We discussed treatment plan including criteria for return importance of follow- up and further evaluation. She expresses understanding and agrees Differential Diagnosis: Likely this was kidney stone causing her pain. Evidence on CT of passing the kidney stone and now the patient is pain-free. Does appear she has mild UTI which we will treat. Incidental finding of possible breast mass and the patient will follow-up for mammography - Data Points Laboratory Results: Laboratory Results 03/08/18 21:05 03/08/18 21:05 03/08/18 03/08/18 03/08/18 21:05 21:05 21:05 WBC 13.77 10^3/uL H 10^3/uL (3.80-9.50) RBC 4.89 10^6/uL 10^6/uL (4.18-5.33) Hgb 12.7 g/dL g/dL (12.6-16.3) Hct 40.0 % % (38.0-47.0) MCV 81.8 fL fL (81.5-99.8) MCH 26.0 pg L pg (27.9-34.1) MCHC 31.8 g/dL L g/dL (32.4-36.7) RDW 13.5 % % (11.5-15.2) Plt Count 306 10^3/uL 10^3/uL (150-400) MPV 10.2 fL fL (8.7-11.7) Neut % (Auto) 72.5 % % (39.3-74.2) Lymph % (Auto) 20.1 % % (15.0-45.0) Jones % (Auto) 5.8 % % (4.5-13.0) Eos % (Auto) 0.9 % % (0.6-7.6) Baso % (Auto) 0.3 % % (0.3-1.7) Nucleat RBC Rel Count 0.0 % % (0.0-0.2) Absolute Neuts (auto) 9.99 10^3/uL H 10^3/uL (1.70-6.50) Absolute Lymphs (auto) 2.77 10^3/uL 10^3/uL (1.00-3.00) Absolute Monos (auto) 0.80 10^3/uL 10^3/uL (0.30-0.80) Absolute Eos (auto) 0.12 10^3/uL 10^3/uL (0.03-0.40) Absolute Basos (auto) 0.04 10^3/uL 10^3/uL (0.02-0.10) Absolute Nucleated RBC 0.00 10^3/uL 10^3/uL (0-0.01) Immature Gran % 0.4 % % (0.0-1.1) Immature Gran # 0.05 10^3/uL 10^3/uL (0.00-0.10) Sodium 137 mEq/L mEq/L (135-145) Potassium 4.3 mEq/L mEq/L (3.5-5.2) Chloride 106 mEq/L mEq/L (97-110) Carbon Dioxide 23 mEq/l mEq/l (22-31) Anion Gap 8 mEq/L mEq/L (6-14) BUN 18 mg/dL mg/dL (7-23) Creatinine 1.0 mg/dL mg/dL (0.6-1.0) Estimated GFR > 60 Glucose 90 mg/dL mg/dL (70-100) Calcium 9.3 mg/dL mg/dL (8.5-10.4) Beta HCG, Qual NEGATIVE Urine Color Urine Appearance Urine pH Ur Specific [place] Urine Protein Urine Ketones Urine Blood Urine Nitrate Urine Bilirubin Urine Urobilinogen Ur Leukocyte Esterase Urine RBC Urine WBC Ur Epithelial Cells Urine Bacteria Urine Mucus Urine Glucose 03/08/18 20:40 WBC RBC Hgb Hct MCV MCH MCHC RDW Plt Count MPV Neut % (Auto) Lymph % (Auto) Jones % (Auto) Eos % (Auto) Baso % (Auto) Nucleat RBC Rel Count Absolute Neuts (auto) Absolute Lymphs (auto) Absolute Monos (auto) Absolute Eos (auto) Absolute Basos (auto) Absolute Nucleated RBC Immature Gran % Immature Gran # Sodium Potassium Chloride Carbon Dioxide Anion Gap BUN Creatinine Estimated GFR Glucose Calcium Beta HCG, Qual Urine Color YELLOW Urine Appearance MODERATELY TURBID Urine pH 5.0 (5.0-7.5) Ur Specific [place] 1.024 (1.002-1.030) Urine Protein NEGATIVE (NEGATIVE) Urine Ketones TRACE H (NEGATIVE) Urine Blood 1+ H (NEGATIVE) Urine Nitrate NEGATIVE (NEGATIVE) Urine Bilirubin NEGATIVE (NEGATIVE) Urine Urobilinogen NEGATIVE EU EU (0.2-1.0) Ur Leukocyte Esterase NEGATIVE (NEGATIVE) Urine RBC 3-5 /hpf H /hpf (0-3) Urine WBC 5-10 /hpf H /hpf (0-3) Ur Epithelial Cells 3+ /lpf H /lpf (NONE-1+) Urine Bacteria 2+ /hpf H /hpf (NONE SEEN) Urine Mucus TRACE /lpf /lpf (NONE-1+) Urine Glucose NEGATIVE (NEGATIVE) Medications Given: Discontinued Medications Sodium Chloride (Ns) 1,000 mls @ 0 mls/hr IV EDNOW ONE; Wide Open PRN Reason: Protocol Stop: 03/08/18 21:19 Last Admin: 03/08/18 21:25 Dose: 1,000 mls Morphine Sulfate (Morphine) 6 mg IVP EDNOW ONE Stop: 03/08/18 21: Last Admin: 03/08/18 21:25 Dose: 6 mg Ondansetron HCl (Zofran) 4 mg IVP EDNOW ONE Stop: 03/08/18 21: Last Admin: 03/08/18 21:25 Dose: 4 mg Point of Care Test Results: Urine Collection Date 03/08/18 Collection Time 20:40 HCG Results Negative Departure - Departure Disposition: Home, Routine, Self-Care Clinical Impression: Renal colic on left side Urinary tract infection Qualifiers: Urinary tract infection type: site unspecified Hematuria presence: with hematuria Qualified Code(s): N39.0 - Urinary tract infection, site not specified ; R31.9 - Hematuria, unspecified; R31.9 - Hematuria, unspecified Condition: Good Instructions: Kidney Stones (ED), Urinary Tract Infection in Women (ED) Additional Instructions: Drink plenty of fluids and stay hydrated. Strain your urine next 24 hr and save stone for analysis Ibuprofen 600 mg every 6 hr for discomfort. Percocet in addition 1 pill every 4 -6 hours as needed for pain Bactrim is 1 pill 2 times daily for urinary tract infection. You have an incidental finding of a 2.8 x 1.5 cm mass in the lower left quadrant of your left breast. Please follow-up with your regular physician to arrange mammography and further evaluation Return for worsening symptoms Referrals: Theresa Catalan MD [Primary Care Provider] - 2-3 days without fail Prescriptions: Sulfamethox/Tmp 800/160 mg [Bactrim Ds] 1 tab PO BID #14 tab
[2018-03-08] MEDS ORDERED: NS 1,000 ML IV ONE (21:18)
[2018-03-08] MEDS ORDERED: ONDANSETRON 4 MG/2 ML VIAL IVP ONE (21:18)
[2018-03-08 21:24] LABS: PLATELET COUNT 306 10^3/uL (150-400)
[2018-03-08] MEDS ORDERED: IOPAMIDOL (ISOVUE 370) 100 ML BTL IV ONE (21:33)
[2018-03-08] MEDS ORDERED: SULFAMETHOX/TMP 800/160 MG 1 TAB PO ONE (22:34)
[2018-03-08] MEDS ORDERED: OXYCODONE/APAP 5/325MG PREPACK#4 BTL TAKEHOME ONE (22:34)
[2018-03-08 22:53] VITALS: BP 132/87
== END 2018-03-08 22:57 | disposition home or self-care (01) ==
DX: N39.0 Urinary tract infection, site not specified (principal); R31.9 Hematuria, unspecified; E86.9 Volume depletion, unspecified
CPT/HCPCS: 96374; J2270; J2405; Q9967

== ENCOUNTER → 2018-03-24 | Outpatient (CLI) | payer OTHER | LOC: BRMIMAGING 09:19 | PROVIDERS: ATTEND Family Medicine | DX: R92.8 Other abnormal and inconclusive findings on diagnostic imaging of breast (principal) | CPT/HCPCS: 76641-PO ==